=== PATIENT | male | born 1990 | race Caucasian/White ===

== ENCOUNTER 2021-03-11 09:57 | Observation (INO) | payer OTHER, SELFPAY ==
[2021-03-11] VITALS (19 sets, daily range): BP systolic 112–140; BP diastolic 57–86; PULSE 66–92; RESP 12–29; TEMP 36.7; O2SAT 95–99
--- NOTE | 2021-03-11 10:15 | DI.RAD.S_ITS ---
PROCEDURE: XR CHEST 2V INDICATIONS: chest pain TECHNIQUE: 2 views of the chest were acquired. COMPARISON: None. FINDINGS: Surgical changes and devices: None. Lungs and pleura: Lungs are clear considering reduced inspiratory volume. No pleural effusions or pneumothorax. Mediastinum: Mediastinal contours are normal. Heart size is normal. Bones and chest wall: No suspicious bony abnormalities. Soft tissues appear unremarkable. IMPRESSION: Reduced inspiration, crowding of the bronchovascular markings, no definite acute disease. Dictated by: Capo Pollack M.D. on 03/11/2021 at 10:50 Approved by: Capo Pollack M.D. on 03/11/2021 at 10:51
[2021-03-11 10:51] LABS: Add Manual Diff / Slide Review NO; Basophils Absolute Auto 0 /uL (0-100); Basophils Percent Auto 0.3 % (0-2); Eosinophils Absolute Auto 500 /uL (0-450); Eosinophils Percent Auto 3.6 % (2-4); Hematocrit 41.3 % (41-53); Hemoglobin 13.7 g/dL (13.5-17.5); Lymphocytes Absolute Auto 1300 /uL (1100-4500); Lymphocytes Percent Auto 10.1 % (25-40); Mean Corpuscular HGB Conc 33.1 % (30-36); Mean Corpuscular Hemoglobin 31.2 PG (26-34); Mean Corpuscular Volume 94.3 fL (80-100); Monocytes Absolute Auto 600 /uL (0-900); Monocytes Percent Auto 5.1 % (3-14); Neutrophils Absolute Auto 10300 /uL (1500-7000); Neutrophils Percent Auto 80.9 % (50-75); Platelet Count 254 X10^3/uL (150-400); Red Blood Cell Count 4.38 X10^6/uL (4.5-5.9); Red Cell Distribution Width 12.6 % (11.6-14.8); White Blood Cell Count 12.7 X10^3/uL (4.5-11.0)
[2021-03-11 11:05] LABS: Alanine Aminotransferase 18 IU/L (<50); Albumin 4.4 g/dL (3.5-5.0); Albumin Globulin Ratio 1.4 (1.0-2.8); Alkaline Phosphatase 54 U/L (38-126); Aspartate Aminotransferase 38 IU/L (17-59); BUN Creatinine Ratio 18.1 (6-22); Bilirubin Total 0.4 mg/dL (0.2-1.3); Blood Urea Nitrogen 15 mg/dL (9-20); Calcium 9.2 mg/dL (8.4-10.2); Carbon Dioxide 31 mmol/L (22-32); Chloride 101 mmol/L (98-107); Creatine Kinase 143 U/L (55-170); Estimated Glomerular Filt Rate > 60.0 mL/min (>60); Globulin 3.1 g/dL (1.7-4.1); Glucose 148 mg/dL (70-100); HEMOLYSIS 17 (0-50); Lipase 60 U/L (23-300); Potassium 4.5 mmol/L (3.4-5.1); Sodium 136 mmol/L (137-145); Total Protein 7.5 g/dL (6.3-8.2)
[2021-03-11 11:14] LABS: Troponin I < 0.012 ng/mL (0.01-0.034)
[2021-03-11 11:20] LABS: CKMB % Relative Index 0.5 % (1.5-5.0); Creatine Kinase MB 0.67 ng/mL (<2.37)
[2021-03-11 12:54] LABS: COVID19 -Nasal RAPID Negative (Negative)
--- NOTE | 2021-03-11 13:30 | ED_ITS ---
HPI - Chest Pain General Chief Complaint: Chest Pain Stated Complaint: chest pain Time Seen by Provider: 03/11/21 13:30 Source: patient Mode of arrival: Ambulatory Limitations: no limitations History of Present Illness HPI narrative: Be 30-year-old male comes emergency department with complaint of chest pain that started 3:45 a.m.. Patient states from present the entire time but is worsened with exertion. Patient states he has felt short of breath, fatigued. He states that that walking around did seem to make it worst. He has any fevers. He does state he has pleuritic chest pain. It does not radiate elsewhere he indicates the left kind of upper chest mid chest region. Patient has not had any nausea vomiting. No abdominal pain, no back pain. He has had decreased appetite, no swelling in his extremities. No other GI or urinary symptoms with no bright red blood or melena. Patient has not had similar symptoms in the past. He takes medication occasionally for seasonal allergies and occasional Ambien. No surgical history. No allergies to medications. No tobacco, alcohol or illicit. Family history mom had elevated blood pressure, he had a grandfather with cardiac history but no other pulmonary or embolic history. 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 Patient is in the [employer]. Related Data Home Medications Medication Instructions Recorded Confirmed cetirizine 10 mg tablet (Zyrtec) 10 mg PO DAILY 02/07/18 03/11/21 multivitamin (Daily Multi-Vitamin) 1 tab PO DAILY 02/07/18 03/11/21 zolpidem 10 mg tablet (Ambien) 10 mg PO BEDTIME PRN 03/11/21 03/11/21 Allergies Allergy/AdvReac Type Severity Reaction Status Date / Time No Known Drug Allergies Allergy Verified 03/11/21 10:11 Review of Systems Review of Systems ROS Unobtainable: All systems reviewed & are unremarkable except as noted in HPI and below Patient History Social History household members: spouse Smoking Status: Never smoker Smoking Status: Never smoker alcohol intake frequency: other Substance Use Type: does not use Exam Narrative Exam Narrative: GENERAL: Alert and oriented x three, male in [id number] distress. HEENT: Head normocephalic, atraumatic, EOMI, pupils reactive, face symmetric, moist mucous membranes NECK: Supple, full range of motion CARDIOVASCULAR: Regular rate and rhythm without murmurs, rubs or gallops. Patient appears uncomfortable to take deep inhalation. On non reproducible chest pain. No rash or skin changes. RESPIRATORY: Breath sounds equal bilaterally, no wheezes rales or rhonchi. No accessory muscle use. ABDOMEN: Soft, nontender. Normoactive bowel sounds all 4 quadrants. No guarding or rebound, rigidity, no mass : No CVA tenderness EXTREMITIES: Normal range of motion, no clubbing or edema. Neurovascularly intact. Homans sign is negative bilaterally. Bilateral lower extremities are equal in circumference with no skin color changes. NEUROLOGICAL: Cranial nerves II through XII grossly intact. Moving all extremities SKIN: Warm, dry, no petechiae, no rashes or lesions. Initial Vital Signs Initial Vital Signs: Vital Signs Temperature 98.1 F 03/11/21 10:12 Pulse Rate 76 03/11/21 10:12 Respiratory Rate 25 H 03/11/21 10:12 Blood Pressure 139/79 03/11/21 10:12 Pulse Oximetry 99 03/11/21 10:12 Scores HEART Score Heart Score history: Highly Suspicious Heart Score EKG: Non-Specific repolarization disturbance Heart Score Age: < 45 years old Heart Score risk factors: No known risk factors Heart Score troponin: < or = to normal limit Heart Score Total: 3 PERC Score Age greater than or equal to 50 years: No Heart rate greater than or equal to 100 bpm: No Room Air O2 Sat less than 95%: No Unilateral leg swelling: No Recent trauma or surgery: No Hemoptysis: No Prior PE or DVT: No Hormone Use: No Total PERC Score: 0 Course Orders Ordered: ED Orders 03/11/21 12:26 EKG-12 Lead Routine 03/11/21 12:33 COVID19 -Nasal swab/Pre-Proc Stat 03/11/21 13:18 Trop I [Troponin I] Stat 03/11/21 13:50 CT angio chest PE protocol Stat Acetaminophen (Acetaminophen 325 Mg Tablet) 650 mg PO Q6HR PRN PRN Reason: Fever/Mild Pain (1-3) Aspirin (Aspirin Ec 81 Mg Tablet) 81 mg PO DAILY [facility] Enoxaparin Sodium (Enoxaparin 40 Mg/0.4 Ml Syringe) 40 mg SUBCUT DAILY [facility] Ceftriaxone Sodium 1,000 mg/ (Sodium Chloride) 100 mls @ 200 mls/hr IV Q24H [facility] Last Admin: 03/11/21 19:11 Dose: 200 mls/hr Documented by: ELIZABETH Azithromycin 500 mg/ Dextrose 250 mls @ 250 mls/hr IV Q24H [facility] Last Admin: 03/11/21 20:19 Dose: 250 mls/hr Documented by: ELIZABETH Ibuprofen (Ibuprofen 600 Mg Tablet) 600 mg PO Q6HR PRN PRN Reason: Fever/Mild Pain (1-3) Magnesium Hydroxide (Magnesium Hydroxide 30 Ml Udc) 30 ml PO DAILY PRN PRN Reason: Constipation Morphine Sulfate (Morphine 2 Mg/Ml Inj) 2 mg IV Q5MIN PRN PRN Reason: Chest Pain Nitroglycerin (Nitroglycerin 0.4 Mg Sl Tab) 0.4 mg SL [id number] PRN PRN Reason: Chest Pain Discontinued Medications Aspirin (Aspirin 81 Mg Chew Tab) 324 mg PO NOW ONE Stop: 03/11/21 13:51 Last Admin: 03/11/21 14:05 Dose: 324 mg Documented by: DEEPA Sodium Chloride (Normal Saline 0.9%) 1,000 mls @ 1,000 mls/hr IV BOLUS ONE Stop: 03/11/21 14:50 Last Infusion: 03/11/21 15:10 Dose: 0 mls/hr Documented by: Admin: 03/11/21 14:05 Dose: 1,000 mls/hr Documented by: DEEPA Morphine Sulfate (Morphine 4 Mg/Ml Inj) 4 mg IV NOW ONE Stop: 03/11/21 13:51 Last Admin: 03/11/21 14:05 Dose: 4 mg Documented by: DEEPA Reevaluation(s) Reevaluation #1: Patient improved after morphine. Consultations Consultation #1: Dr. Richardson accepts for chest pain observation. Vital Signs Vital signs: Vital Signs - 8 hr 03/11/21 12:22 03/11/21 12:30 03/11/21 13:00 Pulse Rate 84 82 84 Respiratory Rate 29 H 16 22 Blood Pressure 130/75 135/76 133/72 Pulse Oximetry 98 98 98 03/11/21 13:17 03/11/21 13:30 03/11/21 14:05 Pulse Rate 89 83 92 H Respiratory Rate 19 26 H 17 Blood Pressure 140/86 129/78 Pulse Oximetry 95 98 03/11/21 14:30 03/11/21 15:00 Pulse Rate 82 90 Respiratory Rate 25 H 21 Blood Pressure Pulse Oximetry 97 96 MDM - Chest Pain Lab Data Result diagrams: 03/11/21 10:20 03/11/21 10:20 Labs: Lab Results 03/11/21 03/11/21 03/11/21 Range/Units 10:20 10:20 10:20 WBC 12.7 H (4.5-11.0) X10^3/uL RBC 4.38 L (4.5-5.9) X10^6/uL Hgb 13.7 (13.5-17.5) g/dL Hct 41.3 (41-53) % MCV 94.3 (80-100) fL MCH 31.2 (26-34) PG MCHC 33.1 (30-36) % RDW 12.6 (11.6-14.8) % Plt Count 254 (150-400) X10^3/uL Neut % (Auto) 80.9 H (50-75) % Lymph % (Auto) 10.1 L (25-40) % [place]ima % (Auto) 5.1 (3-14) % Eos % (Auto) 3.6 (2-4) % Baso % (Auto) 0.3 (0-2) % Neut # (Auto) 57359 H (9636-2393) /uL Lymph # (Auto) 1300 (7817-8812) /uL Pima # (Auto) 600 (0-900) /uL Eos # (Auto) 500 H (0-450) /uL Baso # (Auto) 0 (0-100) /uL Sodium 136 L (137-145) mmol/L Potassium 4.5 (3.4-5.1) mmol/L Chloride 101 (98-107) mmol/L Carbon Dioxide 31 (22-32) mmol/L BUN 15 (9-20) mg/dL Creatinine 0.83 (0.66-1.25) mg/dL Estimated GFR > 60.0 (>60) mL/min BUN/Creatinine Ratio 18.1 (6-22) Glucose 148 H (70-100) mg/dL Hemoglobin A1c 5.3 (4.0-6.0) % Calcium 9.2 (8.4-10.2) mg/dL Total Bilirubin 0.4 (0.2-1.3) mg/dL AST 38 (17-59) IU/L ALT 18 (<50) IU/L Alkaline Phosphatase 54 (38-126) U/L Total Creatine Kinase 143 (55-170) U/L CK-MB (CK-2) 0.67 (<2.37) ng/mL CK-MB (CK-2) Rel Index 0.5 L (1.5-5.0) % Troponin I < 0.012 (0.01-0.034) ng/mL Total Protein 7.5 (6.3-8.2) g/dL Albumin 4.4 (3.5-5.0) g/dL Globulin 3.1 (1.7-4.1) g/dL Albumin/Globulin Ratio 1.4 (1.0-2.8) Lipase 60 (23-300) U/L SARS-CoV-2 (PCR) (Negative) 03/11/21 03/11/21 Range/Units 12:33 13:18 WBC (4.5-11.0) X10^3/uL RBC (4.5-5.9) X10^6/uL Hgb (13.5-17.5) g/dL Hct (41-53) % MCV (80-100) fL MCH (26-34) PG MCHC (30-36) % RDW (11.6-14.8) % Plt Count (150-400) X10^3/uL Neut % (Auto) (50-75) % Lymph % (Auto) (25-40) % Pima % (Auto) (3-14) % Eos % (Auto) (2-4) % Baso % (Auto) (0-2) % Neut # (Auto) (2415-9516) /uL Lymph # (Auto) (5676-7393) /uL Pima # (Auto) (0-900) /uL Eos # (Auto) (0-450) /uL Baso # (Auto) (0-100) /uL Sodium (137-145) mmol/L Potassium (3.4-5.1) mmol/L Chloride (98-107) mmol/L Carbon Dioxide (22-32) mmol/L BUN (9-20) mg/dL Creatinine (0.66-1.25) mg/dL Estimated GFR (>60) mL/min BUN/Creatinine Ratio (6-22) Glucose (70-100) mg/dL Hemoglobin A1c (4.0-6.0) % Calcium (8.4-10.2) mg/dL Total Bilirubin (0.2-1.3) mg/dL AST (17-59) IU/L ALT (<50) IU/L Alkaline Phosphatase (38-126) U/L Total Creatine Kinase (55-170) U/L CK-MB (CK-2) (<2.37) ng/mL CK-MB (CK-2) Rel Index (1.5-5.0) % Troponin I < 0.012 (0.01-0.034) ng/mL Total Protein (6.3-8.2) g/dL Albumin (3.5-5.0) g/dL Globulin (1.7-4.1) g/dL Albumin/Globulin Ratio (1.0-2.8) Lipase (23-300) U/L SARS-CoV-2 (PCR) Negative (Negative) Imaging Data Chest x-ray: Radiologist's Impression: [address] [id number] ReportSigned Patient: Dennis Heller EMR#: [id number]: 1990Acct:[id number]/Sex: 30 / MDate of Service: 03/11/21Loc: EDAccession Number: [id number] Procedure: XR chest 2V Ordering Provider: Adri Sanchez D.O. PROCEDURE: XR CHEST 2V INDICATIONS: chest pain TECHNIQUE: 2 views of the chest were acquired. COMPARISON: None. FINDINGS: Surgical changes and devices: None. Lungs and pleura: Lungs are clear considering reduced inspiratory volume. No pleural effusions or pneumothorax. Mediastinum: Mediastinal contours are normal. Heart size is normal. Bones and chest wall: No suspicious bony abnormalities. Soft tissues appear unremarkable. IMPRESSION: Reduced inspiration, crowding of the bronchovascular markings, no definite acute disease. Dictated by: Capo Pollack M.D. on 03/11/2021 at 10:50 Approved by: Capo Pollack M.D. on 03/11/2021 at 10:51 CT scan - chest: Radiologist's Impression: [address] [id number] Scan ReportSigned Patient: Dennis Heller EMR#: [id number]: 1990Acct:[id number]/Sex: 30 / MDate of Service: 03/11/21Loc: EDAccession Number: [id number] Procedure: CT angio chest PE protocol Ordering Provider: Adri Sanchez D.O. 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 3-dimensional maximum intensity projection (MIP) coronal and sagittal reformats were then acquired through the thorax. For radiation dose reduction, the following was used: automated exposure control, adjustment of mA and/or kV according to patient size. COMPARISON: None. FINDINGS: Image quality: Excellent. Pulmonary arteries: Pulmonary arteries are normal in size, and demonstrate no intraluminal filling defects to suggest central pulmonary embolism. Lungs and pleura: Lungs are mildly abnormal, with patchy alveolar opacification at the lung bases symmetric bilaterally.. No pleural effusions or pneumothorax. C entral and peripheral airways are patent. Mediastinum: Heart size is normal, without pericardial effusion. No mediastinal or hilar adenopathy. Thoracic aorta is normal in caliber and enhancement. Esophagus is normal in caliber, without hiatal hernia. Bones and chest wall: No suspicious bony lesions. Ribs and thoracic spine appear intact throughout. Thyroid gland appears normal. No axillary or supraclavicular adenopathy. Abdomen: Visualized upper abdominal solid organs appear normal in the early arterial phase of enhancement. IMPRESSION: No pulmonary embolus seen. Patchy alveolar infiltration each lung base is considered more likely atelectasis than pneumonia. Dictated by: Capo Pollack M.D. on 03/11/2021 at 14:52 Approved by: Capo Pollack M.D. on 03/11/2021 at 14:54 ECG Data Interpretation: EKG 1. Shows a rate of 74 P are 148 QRS 86 and QTC of 408. Patient does to have some depression and 3. Patient may have elevation in V1 2 3 but this may be normal hypertrophy. EKG 2. Shows same pattern with a rate of 71, [place] 150, QRS 86 and QTC of 397. EKG 3. Also shows the same pattern without significant change with a rate of 82 P are 148 QRS 84 and QTC of 408. Patient does not have priors for comparison MDM Narrative Medical decision making narrative: This is a 30 old male who comes emergency department complaint of chest pain. Patient have pleuritic chest pain appears quite uncomfortable. His symptoms are worse with exertion. It did start onset initially overnight and has never resolved although been intermittently worse and he notes it is worse when he ambulates. 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 CT angiography was negative, troponin is negative x2, no clear EKG changes for cardiac cause and patient does not have any known cardiac history or family history and is low risk in terms of risk factors. Negative for covid. Discussed with our hospitalist about keeping patient for observation and he kindly accepts. Discharge Plan Departure Patient Disposition: Admitted as Observation Clinical Impression: Chest pain Admit Date/Time: 03/11/21 15:03 Admit Provider: Tee Richardson
[2021-03-11 13:49] LABS: Troponin I < 0.012 ng/mL (0.01-0.034)
--- NOTE | 2021-03-11 13:50 | DI.CT.S_ITS ---
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 3-dimensional maximum intensity projection (MIP) coronal and sagittal reformats were then acquired through the thorax. For radiation dose reduction, the following was used: automated exposure control, adjustment of mA and/or kV according to patient size. COMPARISON: None. FINDINGS: Image quality: Excellent. Pulmonary arteries: Pulmonary arteries are normal in size, and demonstrate no intraluminal filling defects to suggest central pulmonary embolism. Lungs and pleura: Lungs are mildly abnormal, with patchy alveolar opacification at the lung bases symmetric bilaterally.. No pleural effusions or pneumothorax. Central and peripheral airways are patent. Mediastinum: Heart size is normal, without pericardial effusion. No mediastinal or hilar adenopathy. Thoracic aorta is normal in caliber and enhancement. Esophagus is normal in caliber, without hiatal hernia. Bones and chest wall: No suspicious bony lesions. Ribs and thoracic spine appear intact throughout. Thyroid gland appears normal. No axillary or supraclavicular adenopathy. Abdomen: Visualized upper abdominal solid organs appear normal in the early arterial phase of enhancement. IMPRESSION: No pulmonary embolus seen. Patchy alveolar infiltration each lung base is considered more likely atelectasis than pneumonia. Dictated by: Capo Pollack M.D. on 03/11/2021 at 14:52 Approved by: Capo Pollack M.D. on 03/11/2021 at 14:54
[2021-03-11] MEDS: ASPIRIN 81 MG CHEW TAB 324 MG PO (14:05)
[2021-03-11] MEDS: MORPHINE 4 MG/ML INJ IV (14:05)
[2021-03-11] MEDS: SODIUM CHLORIDE 0.9% 1,000 ML 1000 ML IV (14:05)
--- NOTE | 2021-03-11 18:28 | DI.ECHO.S_ITS ---
[place]---------+ [facility] +---------+ : : [address] : : : : [id number] : : : : Phone: [phone] Echocardiogram Report + + :Name: AMAYA RESENDIZ Study Date: 03/12/2021 Height: 64 in : [facility] Reading[facility]: Weight: 175 lb : : Gender: Male BSA: 1.8 m2 : :: 1990 Age: 30 yrs BP: 115/66 mmHg: :Reason For Study: Chest pain : :Ordering Physician: OSBALDO, : :TISH Performed By: Flaco Casey : :Referring: TISH ROBLERO : + + Interpretation Summary Normal sinus rhythm. Normal LV size and wall thickness; normal wall motion and low normal LV systolic function estimated at 50-55%. Normal chamber sizes. No valvular abnormalities. No prior study available for comparison. Procedure: A two-dimensional transthoracic echocardiogram with color flow and Doppler was performed. The study quality was technically adequate. There is no prior echocardiogram noted for this patient. The patient was in sinus rhythm with heart rates between 59-72 bpm during the exam. Left Ventricle: The left ventricle is normal in size and wall thickness. Left ventricular systolic function is normal. The ejection fraction is estimated to be 55-60%. There are no focal wall motion abnormalities. Diastolic parameters suggest probable normal left ventricular diastolic function and normal filling pressures. Right Ventricle: The right ventricle is normal in size and function. Atria: Both atria are normal in size. There is no Doppler evidence for an interatrial shunt. Mitral Valve: The mitral valve is normal in structure and function. There is trace mitral regurgitation. Aortic Valve: The aortic valve is normal in structure and function. No aortic regurgitation is present. Tricuspid Valve: The tricuspid valve is normal in structure and function. There is trace tricuspid regurgitation. Pulmonary artery pressures cannot be estimated because of the lack of a measurable TR jet velocity but the IVC suggests a CVP of around 3 mmHg. Pulmonic Valve: The pulmonic valve is normal in structure and function. There is trace pulmonic regurgitation. Great Vessels: The aortic root is normal size. The dimensions of the ascending aorta are normal. The IVC is of normal diameter and collapses greater than 50% with a sniff. This suggests a low right atrial pressure of 3 mm Hg. Pericardium/ Pleura There is no pericardial effusion. There is no pleural effusion. MMode/2D Measurements & Calculations LVIDd: 5.1 cm LVOT diam: 2.2 cm LVIDs: 3.6 cm Ao root diam: 3.3 cm FS: 30.1 % asc Aorta Diam: 2.7 cm IVSd: 0.91 cm LVPWd: 0.83 cm LV overton. diameter/BSA (cm/m^2): 2.8 LV sys. diameter/BSA (cm/m^2): 1.9 LA A2 area: 14.9 cm2 RA long axis: 4.7 cm LA A4 area: 17.1 cm2 RA area: 12.6 cm2 LA length (vol): 5.0 cm RA vol: 28.4 ml LA vol: 42.8 ml RA : 15.3 ml/m2 LA vol index: 23.2 ml/m2 TAPSE: 2.1 cm Doppler Measurements & Calculations Ao V2 max: 114.6 cm/sec LVOT Max Demetrio: 89.2 cm/sec Ao V2 mean: 75.0 cm/sec LV V1 max P.2 mmHg Ao max P.3 mmHg LV V1 VTI: 16.9 cm Ao mean P.6 mmHg YANDEL(I,D): 3.3 cm2 Ao V2 VTI: 19.8 cm YANDEL(V,D): 3.0 cm2 sev ratio: 0.85 YANDEL indexed to BSA (cm^2/m^2): 1.8 MV E max demetrio: 79.6 cm/sec PA V2 max: 103.9 cm/sec MV A max demetrio: 46.9 cm/sec PA V2 mean: 76.1 cm/sec MV E/A: 1.7 PA mean P.6 mmHg Med Peak E' Demetrio: 15.6 cm/sec PA pr(Accel): 37.0 mmHg E/E' med: 5.1 Lat Peak E' Demetrio: 16.8 cm/sec E/E' lat: 4.8 E/e' average: 4.9 MV dec time: 0.20 sec SV(LVOT): 65.3 ml Electronically signed by: Johana Stuart M.D. on Reading Physician:03/12/2021 12:16 PM
[2021-03-11] MEDS: cefTRIAXone 1,000 MG in SODIUM CHLORIDE 0.9% 100 ML 200 ML IV (19:11)
[2021-03-11 19:31] LABS: Hemoglobin A1C% w Est Avg Glu 5.3 % (4.0-6.0)
--- NOTE | 2021-03-11 19:36 | PM.HP.1 ---
History of Present Illness History of Present Illness Date Patient Seen: 03/11/21 Time Patient Seen: 19:36 Chief complaint: chest pain Narrative: Patient is a 30-year-old male Dennis Heller who presented to the ED with a chief complaint of chest pain that started 3:45 a.m. Patient states from present the entire time but is worsened with exertion. Patient states he has felt short of breath, fatigued, unable to take a deep breath. He states that walking around did seem to make it worst. It does not radiate, the pain is a pressure, constant varies in intensity. Intensity elevated with deep breathing and physical exercise/movement. The pain is not relieved with rest, and is diffusely distributed a crossed the chest area. Patient denies recent trauma, though he notes that he in his family were moderately ill approximately 3 weeks ago from what appeared to be a virus. Patient does report feeling an irregular heart rate, he notes that he can normally run 5 miles without becoming short of breath. Patient denies nausea, vomiting, diaphoresis, changes in vision, headache, numbness, weakness, or swelling of extremities. No other GI or urinary symptoms with no bright red blood or melena. Patient has not had similar symptoms in the past. He takes medication occasionally for seasonal allergies and occasional Ambien for shift work sleep disturbance. No tobacco, alcohol or illicit. Family history mom had elevated blood pressure, he had a grandfather with cardiac history but no other pulmonary or embolic history. 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 Patient is a [employer] harbor pilot. The patient does report that he has been under increased stress in his personal life and at home in addition to the stress of being a harbor pilot in the and has had poor sleep quality for the past week, complaining of generalized fatigue. Patient pain seems to be focused around his breathing. Upon admission patient is resting comfortably in bed and reports chest pain is 2/10. Patient's vitals are unremarkable with a blood pressure of 119/57, HR 79, RR 12, an O2 saturation of 95% on room air. Patient's labs are also all unremarkable with the exception of a mild bump in WBC 12.7, Neut # 10,300, mild elevation in glucose 148, patient's first 2 troponins are unremarkable at < 0.012. Patient's checks x-ray demonstrated reduced inspiration, crowding of the bronchovascular markings, no definite acute disease. Followed by his chest CTA found pulmonary arteries are normal in size, and demonstrate no intraluminal filling defects to suggest central pulmonary embolism. Lungs are mildly abnormal, with patchy alveolar opacification at the lung bases symmetric bilaterally. No pulmonary embolus seen. Patchy alveolar infiltration each lung base is considered more likely atelectasis than pneumonia. Concern that elevated white count with imaging findings support pneumonia. EKG 1. Shows a rate of 74 P are 148 QRS 86 and QTC of 408. Patient does to have some depression and 3. Patient may have elevation in V1 2 3 but this may be normal hypertrophy. EKG 2. Shows same pattern with a rate of 71, DE 150, QRS 86 and QTC of 397. EKG 3. Also shows the same pattern without significant change with a rate of 82 P are 148 QRS 84 and QTC of 408. Patient does not have priors for comparison patient admitted for chest pain rule out. 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 Prior Living Arrangements House Safety & Behavioral: Feels Safe in Current Yes Environment Been Physically Hurt or No Threatened By a Person Suicidal Ideation Description None Suicide Plan Description No Plan Tobacco & Substance use: Smoking Status Never smoker alcohol intake frequency other Substance Use Type does not use Meds Home Medications and Allergies Home Medications Medication Instructions Recorded Confirmed Type cetirizine 10 mg tablet (Zyrtec) 10 mg PO DAILY 02/07/18 03/11/21 History multivitamin (Daily Multi-Vitamin) 1 tab PO DAILY 02/07/18 03/11/21 History zolpidem 10 mg tablet (Ambien) 10 mg PO BEDTIME PRN 03/11/21 03/11/21 History Allergies Allergy/AdvReac Type Severity Reaction Status Date / Time No Known Drug Allergies Allergy Verified 03/11/21 10:11 Review of Systems Review of Systems Narrative: Patient continues to have mild constant diffusely present chest pain with physical movement and deep breathing. Patient continues to verbalize the inability to take deep breaths. Exam Vital Signs (past 8 hours): - 03/11/21 11:45 03/11/21 12:15 03/11/21 12:22 Temperature Pulse Rate 66 84 84 Respiratory Rate 22 29 H 29 H Blood Pressure 122/67 130/75 Pulse Oximetry 99 98 98 03/11/21 12:30 03/11/21 13:00 03/11/21 13:17 Temperature Pulse Rate 82 84 89 Respiratory Rate 16 22 19 Blood Pressure 135/76 133/72 140/86 Pulse Oximetry 98 98 95 03/11/21 13:30 03/11/21 14:05 03/11/21 14:30 Temperature Pulse Rate 83 92 H 82 Respiratory Rate 26 H 17 25 H Blood Pressure 129/78 Pulse Oximetry 98 97 03/11/21 15:00 03/11/21 15:30 03/11/21 15:46 Temperature Pulse Rate 90 90 87 Respiratory Rate 21 15 21 Blood Pressure 117/64 Pulse Oximetry 96 95 95 03/11/21 16:00 03/11/21 16:30 03/11/21 17:15 Temperature 98.1 F Pulse Rate 92 H 79 85 Respiratory Rate 19 12 16 Blood Pressure 112/64 119/57 L 119/66 Pulse Oximetry 95 95 98 Oxygen Delivery Method Room Air Oxygen Flow Rate 0 Narrative Exam Narrative: General: Patient is a well-developed, well-nourished in no distress at this time. HEENT: Normocephalic, atraumatic, extraocular muscles intact, oral pharynx is clear and mucous membranes are moist. Neck is supple and symmetric, trachea is midline, no adenopathy, no thyroid enlargement, nontender, no masses palpated. Negative for JVD Chest: Normal AP diameter and contour without kyphoscoliosis, no nasal flaring, retractions, or tachypneic labored, Patient had bilateral intercostal pain with palpation & inspiration, which improved with splinting. Lungs: Auscultation of all lung fletcher are clear, slightly decreased in the bases without adventitious sounds, wheezes, rhonchi, or rales. Cardio: S1 & S2 with regular rate and rhythm without murmur, rubs, or gallops, no carotid bruit, no cardiac pulsations present. Abdomen: Soft nontender, negative for organomegaly, or masses. Bowel sounds are present in all 4 quadrants without guarding or rebound, no CVA tenderness. Musculoskeletal: Muscle strength and tone are equal within normal limits, no deformity, crepitus, effusions, cyanosis, clubbing or edema present. Full range of motion intact radial and pedal pulses are normal. Skin: Warm dry and intact without rashes, ulcerations or petechiae. Neuro: Alert and orientated x3, strength is +5/5 in all extremities, sensation to touch intact, no gross deficits noted of cranial nerves. Psych: Patient has a well-kept appearance, appropriate affect, mental status attitude thought context and judgment are appropriate for age. Objective Labs Result Diagrams: 03/11/21 10:20 03/11/21 10:20 Labs: Laboratory Results - last 24 hr 03/11/21 03/11/21 03/11/21 10:20 10:20 10:20 WBC 12.7 H RBC 4.38 L Hgb 13.7 Hct 41.3 MCV 94.3 MCH 31.2 MCHC 33.1 RDW 12.6 Plt Count 254 Neut % (Auto) 80.9 H Lymph % (Auto) 10.1 L [place] % (Auto) 5.1 Eos % (Auto) 3.6 Baso % (Auto) 0.3 Neut # (Auto) 41253 H Lymph # (Auto) 1300 [place] # (Auto) 600 Eos # (Auto) 500 H Baso # (Auto) 0 Sodium 136 L Potassium 4.5 Chloride 101 Carbon Dioxide 31 BUN 15 Creatinine 0.83 Estimated GFR > 60.0 BUN/Creatinine Ratio 18.1 Glucose 148 H Hemoglobin A1c 5.3 Calcium 9.2 Total Bilirubin 0.4 AST 38 ALT 18 Alkaline Phosphatase 54 Total Creatine Kinase 143 CK-MB (CK-2) 0.67 CK-MB (CK-2) Rel Index 0.5 L Troponin I < 0.012 Total Protein 7.5 Albumin 4.4 Globulin 3.1 Albumin/Globulin Ratio 1.4 Lipase 60 SARS-CoV-2 (PCR) 03/11/21 03/11/21 12:33 13:18 WBC RBC Hgb Hct MCV MCH MCHC RDW Plt Count Neut % (Auto) Lymph % (Auto) [place] % (Auto) Eos % (Auto) Baso % (Auto) Neut # (Auto) Lymph # (Auto) [place] # (Auto) Eos # (Auto) Baso # (Auto) Sodium Potassium Chloride Carbon Dioxide BUN Creatinine Estimated GFR BUN/Creatinine Ratio Glucose Hemoglobin A1c Calcium Total Bilirubin AST ALT Alkaline Phosphatase Total Creatine Kinase CK-MB (CK-2) CK-MB (CK-2) Rel Index Troponin I < 0.012 Total Protein Albumin Globulin Albumin/Globulin Ratio Lipase SARS-CoV-2 (PCR) Negative Assessment & Plan Assessment & Plan narrative: 1. Chest pain (pleuritic), acute, present on admission -I suspect pleurisy versus costochondritis, although imaging findings support patient's complaints of difficulty taking a deep breath, which are concerning for possible pneumonia. WBC 12.7, Neut#[id number], troponin 1.& 2. <0.012 Patient's chest x-ray demonstrated reduced inspiration, crowding of the bronchovascular markings, no definite acute disease. Followed by his chest CTA found pulmonary arteries are normal in size, and demonstrate no intraluminal filling defects to suggest central pulmonary embolism. Lungs are mildly abnormal, with patchy alveolar opacification at the lung bases symmetric bilaterally. No pulmonary embolus seen. Patchy alveolar infiltration each lung base is considered more likely atelectasis than pneumonia. -Rule out myocardial ischemia, ACS, CAD, aortic dissection Heart score: 3, GCS score:15, Wells:0, Saul Vasc score:0 -Continuous tele monitoring and order echo(r/o wall motion abnormalities), and stress test for tomorrow -respiratory consult, peak flow meter, albuterol neb q.4 hours as needed, may consider prednisone 40 mg x 5 days -ordered Voltaren gel, ibuprofen Q 8 hours, and Toradol as needed -patient was started on azithromycin and Rocephin by Dr. Richardson -Serial troponins Q 6 hours x3, proBNP, TSH, CBC, procalcitonin -sublingual nitro glycerin 0.4 mg, aspirin 325 mg Monitor for hypertensive emergencies with acute end-organ damage, ventricular tachycardia, unstable SVT, hypertension, angina or MD, heart failure, renal function. - Goals: reducing blood pressure over 24-48 hours, not more than 25-30% in the 1st 24 hours. O2 to keep O2 sats greater than 92% potassium > 4 and Mag > 2 2. Hyperglycemia, acute, present on admission -as evidence by a glucose 148 -patient's A1c 5.3-no diabetes 3. Obesity as evidence by BMI of 30.1, acute on chronic, present on admission -consideration will be given to dietary counseling Code status: Full code Surrogate decision maker: Spouse Mady MAI PCR: Negative DVT/VTE prophylaxis: Lovenox 40 and SCDs Scores GCS Earl coma scale eye opening: Spontaneous Earl coma scale verbal response: Orientated [place] coma scale motor response: Obey commands [place] coma scale total score: 15 Wells' Criteria for PE Clinical signs and symptoms of DVT: No PE is #1 Dx or equally likely: No Heart rate > 100: No Immobilization at least 3 days or surg in previous 4 weeks: No History of PE or DVT: No Hemoptysis: No Malignancy w/Treatment within 6 months or palliative: No Wells' PE Score total: 0 Quality VTE Deep Vein Thrombosis/Pulmonary Embolism Present on Admission: No
[2021-03-11] MEDS: AZITHROMYCIN 500 MG in DEXTROSE 5% IN WATER 250 ML IV (20:19)
[2021-03-11 21:02] LABS: Magnesium 2.1 mg/dL (1.6-2.3)
[2021-03-11 21:05] LABS: C-Reactive Protein Quant 2.7 mg/dL (<1.0)
[2021-03-11 21:06] LABS: Erythrocyte Sedimentation Rate 6 MM/HR (0-15)
[2021-03-11 21:15] LABS: Troponin I < 0.012 ng/mL (0.01-0.034)
[2021-03-11] MEDS: MORPHINE 2 MG/ML INJ IV (22:33)
[2021-03-12 01:24] VITALS: BP 107/57; PULSE 69; RESP 16; TEMP 36.7; O2SAT 96
[2021-03-12 06:00] VITALS: BP 104/51; PULSE 71; RESP 16; TEMP 37; O2SAT 96
[2021-03-12 06:04] LABS: Add Manual Diff / Slide Review NO; Basophils Absolute Auto 0 /uL (0-100); Basophils Percent Auto 0.3 % (0-2); Eosinophils Absolute Auto 300 /uL (0-450); Eosinophils Percent Auto 4.1 % (2-4); Hematocrit 38.9 % (41-53); Hemoglobin 13.1 g/dL (13.5-17.5); Lymphocytes Absolute Auto 1600 /uL (1100-4500); Lymphocytes Percent Auto 19.2 % (25-40); Mean Corpuscular HGB Conc 33.7 % (30-36); Mean Corpuscular Hemoglobin 31.5 PG (26-34); Mean Corpuscular Volume 93.4 fL (80-100); Monocytes Absolute Auto 800 /uL (0-900); Monocytes Percent Auto 9.7 % (3-14); Neutrophils Absolute Auto 5400 /uL (1500-7000); Neutrophils Percent Auto 66.7 % (50-75); Platelet Count 226 X10^3/uL (150-400); Red Blood Cell Count 4.17 X10^6/uL (4.5-5.9); Red Cell Distribution Width 12.6 % (11.6-14.8); White Blood Cell Count 8.1 X10^3/uL (4.5-11.0)
[2021-03-12 06:23] LABS: BUN Creatinine Ratio 16.4 (6-22); Blood Urea Nitrogen 12 mg/dL (9-20); Calcium 8.7 mg/dL (8.4-10.2); Carbon Dioxide 26 mmol/L (22-32); Chloride 104 mmol/L (98-107); Estimated Glomerular Filt Rate > 60.0 mL/min (>60); Glucose 99 mg/dL (70-100); HEMOLYSIS 18 (0-50); Potassium 4.1 mmol/L (3.4-5.1); Sodium 136 mmol/L (137-145)
[2021-03-12 06:31] LABS: NT-proBNP (BNP-Adult 18+) 114 pg/mL (<125)
[2021-03-12 06:40] LABS: Procalcitonin 0.34 ng/mL (<0.5)
[2021-03-12 09:09] VITALS: BP 115/66; PULSE 84; RESP 18; TEMP 36.2; O2SAT 97
[2021-03-12] MEDS: ENOXAPARIN 40 MG/0.4 ML SYRINGE SUBCUT (09:34)
[2021-03-12 13:00] VITALS: BP 128/60; PULSE 82; RESP 18; TEMP 36.4; O2SAT 98
--- NOTE | 2021-03-12 15:32 | PC.NURSE ---
Pt A&Ox3, VSS,afebrile on RA. LS CTA, no cough noted although pt states he feels he has a congestion deep in his chest. He denied Ibuprofen this shift, and stated the pain is gone around his chest he felt earlier and with deep inhalation he denies pain. Echo completed at bedside. MD cleared patient for discharge this afternoon, home on po antibiotics. At approximately 1450 pt's arrived. Pt verbalizes agreement and understanding of discharge, medications, and follow up care. At 1515 pt escorted out of hospital with [employer]PRESENTATIVE and to private car with all of his belongings.
--- NOTE | 2021-03-12 15:43 | CM.DANOTE ---
DCP: assessment: case received and discussed in Team Rounds. Dr. Richardson noted workup was in process for dx and POC. A check in this afternoon shows that pt was ok'd for home and left with his this afternoon. He will follow up with his flight physician. Payer: Jens Swanson No concerns re the d/c for today are noted by the care team members.
--- NOTE | 2021-03-12 20:19 | PM.DS.1 ---
History of Present Illness History of Present Illness Chief complaint: chest pain Narrative: Patient's 30-year-old male admitted with dyspnea and pleuritic chest pain with history having acute viral symptoms a few weeks prior. Tested negative for COVID. Discharge Providers Provider Date of admission: 03/11/21 15:03 Discharge Date: 03/12/21 Primary care physician: Neil Silva MD Consults: 03/12/21 07:00 Consult to Respiratory Therapy Evaluate & Treat Comment: SOB Physician Instructions: Evaluate and treat Discharge provider: Tee Richardson MD Summary Hospital Course Discharge Diagnosis: 1. Community acquired pneumonia, bacterial versus viral 2. Acute pleurisy Patient had cardiac workup for chest pain including negative serial troponin and a normal echo. His pain responded to morphine and ibuprofen. On CT he had mild basilar infiltrates interpreted as atelectasis although could represent pneumonia. He did have mildly elevated WBC and was started on Rocephin and Zithromax for probable pneumonia. The following morning his symptoms have greatly improved where he is able to take deeper breaths and is not having the pleuritic pain. He is being discharged on Zithromax x3 days to complete course for community-acquired pneumonia as well as ibuprofen 800 mg q.8 hours as needed for pleurisy pain. Exam Vital Signs (past 8 hours): - 03/12/21 13:00 Temperature 97.6 F Pulse Rate 82 Respiratory Rate 18 Blood Pressure 128/60 Pulse Oximetry 98 Oxygen Delivery Method Room Air Oxygen Flow Rate 0 Objective Labs Result Diagrams: 03/12/21 05:33 03/12/21 05:33 Labs: Laboratory Results - last 24 hr 03/11/21 03/11/21 03/11/21 20:32 20:32 20:32 WBC RBC Hgb Hct MCV MCH MCHC RDW Plt Count Neut % (Auto) Lymph % (Auto) [place] % (Auto) Eos % (Auto) Baso % (Auto) Neut # (Auto) Lymph # (Auto) [place] # (Auto) Eos # (Auto) Baso # (Auto) ESR 6 Sodium Potassium Chloride Carbon Dioxide BUN Creatinine Estimated GFR BUN/Creatinine Ratio Glucose Calcium Magnesium Troponin I < 0.012 C-Reactive Protein 2.7 H NT-Pro-B Natriuret Pep Procalcitonin 03/11/21 03/12/21 03/12/21 20:32 05:33 05:33 WBC 8.1 RBC 4.17 L Hgb 13.1 L Hct 38.9 L MCV 93.4 MCH 31.5 MCHC 33.7 RDW 12.6 Plt Count 226 Neut % (Auto) 66.7 Lymph % (Auto) 19.2 L [place] % (Auto) 9.7 Eos % (Auto) 4.1 H Baso % (Auto) 0.3 Neut # (Auto) 5400 Lymph # (Auto) 1600 [place] # (Auto) 800 Eos # (Auto) 300 Baso # (Auto) 0 ESR Sodium 136 L Potassium 4.1 Chloride 104 Carbon Dioxide 26 BUN 12 Creatinine 0.73 Estimated GFR > 60.0 BUN/Creatinine Ratio 16.4 Glucose 99 Calcium 8.7 Magnesium 2.1 Troponin I C-Reactive Protein NT-Pro-B Natriuret Pep Procalcitonin 03/12/21 03/12/21 05:33 05:33 WBC RBC Hgb Hct MCV MCH MCHC RDW Plt Count Neut % (Auto) Lymph % (Auto) [place] % (Auto) Eos % (Auto) Baso % (Auto) Neut # (Auto) Lymph # (Auto) [place] # (Auto) Eos # (Auto) Baso # (Auto) ESR Sodium Potassium Chloride Carbon Dioxide BUN Creatinine Estimated GFR BUN/Creatinine Ratio Glucose Calcium Magnesium Troponin I C-Reactive Protein NT-Pro-B Natriuret Pep 114 Procalcitonin 0.34 PFSH Medical History Shifting sleep-work schedule Surgical History History of surgery on right wrist Family History (Updated 03/11/21 @ 22:54 by SILVERIO Duarte) Mother Hypertension Depression Father Cancer Mental health disorder Social History household members: spouse Smoking Status: Never smoker Discharge Plan Discharge Plan Patient Disposition: Home Provider Discharge Comment: You were treated for community acquired pneumonia and pleurisy. Finish antibiotic as prescribed. Take the ibuprofen every 8 hours as needed for pleurisy pain. Follow up with your flight doctor. Discharge orders & Medications Prescriptions: New azithromycin [Zithromax] 250 mg tablet 250 mg PO .evening Qty: 3 RF: 0 ibuprofen 800 mg tablet 800 mg PO Q8H PRN (Reason: pleurisy pain) Qty: 30 RF: 0 Continued multivitamin [Daily Multi-Vitamin] tablet 1 tab PO DAILY RF: 0 cetirizine [Zyrtec] 10 mg tablet 10 mg PO DAILY RF: 0 zolpidem [Ambien] 10 mg Tablet 10 mg PO BEDTIME PRN (Reason: Insomnia) RF: 0 Follow up/Referrals: Neil Silva MD [Primary Care Provider] - Diet/Activity/Treatments Diet: Regular Visit Report/Discharge Packet Instructions: Pleurisy, DI for Pleurisy Discharge Data Primary Care Provider: Neil Silva Attending Provider: Tee Richardson VTE Deep Vein Thrombosis/Pulmonary Embolism Present on Admission: No
== END 2021-03-12 15:15 | disposition home or self-care (01) ==
LOC: ED 13:30 → AC 15:03
PROVIDERS: Nurse Practitioner Family; Admitting Provider Internal Medicine; Emergency Provider Emergency Medicine; Referring Provider Emergency Medicine; Visit Provider Internal Medicine
DX: J18.9 Pneumonia, unspecified organism (principal); R09.1 Pleurisy; Z20.822 Contact with and (suspected) exposure to COVID-19
CPT/HCPCS: 36415; 71046; 71275; 80048; 80053; 82550; 82553; 83036; 83690; 83735; 83880; 84145; 84484; 85025; 85651; 86140; 87635; 93005; 93306; 96361; 96365; 96366; 96367; 96372; 96375; 96376; 99285; C9803; G0378; J0696; J1650; J2270; Q9967